=== PATIENT | female | born 1975 | race African-American/Black ===

== ENCOUNTER 2022-03-07 19:07 | Emergency (ER) | payer SELFPAY ==
[2022-03-07] MEDS ORDERED: Potassium Chloride 20 MEQ Tab.ER PO ONE (22:23)
== END 2022-03-07 22:55 | disposition home or self-care (01) ==
LOC: JD.ED 19:07
DX: F45.8 Other somatoform disorders (principal); R73.9 Hyperglycemia, unspecified; E87.6 Hypokalemia; R03.0 Elevated blood-pressure reading, without diagnosis of hypertension; E66.9 Obesity, unspecified; Z20.822 Contact with and (suspected) exposure to COVID-19; Z68.42 Body mass index [BMI] 45.0-49.9, adult
CPT/HCPCS: 36415; 36600; 71046; 80053; 81001; 81025; 82803; 83735; 83880; 84443; 84484; 85025; 85379; 87635; 93005; 99284; A9270; U0002